=== PATIENT | female | born 1950 | race Two or more races ===

== ENCOUNTER 2017-09-06 13:38 | Outpatient (CLI) | payer OTHER ==
[~2017-09-06 13:38] MED LIST: ALBAFORT325 ( 65 ); VIT C 500 MG-E500 MG
== END 2017-09-06 13:40 | disposition home or self-care (01) ==
LOC: NUCLEAR 13:38
DX: M81.0 Age-related osteoporosis without current pathological fracture (principal)

== ENCOUNTER 2018-01-10 13:37 | Outpatient (CLI) | payer OTHER | END 2018-01-10 13:40 | disposition home or self-care (01) | LOC: SONOGRAMA 13:37 → MAMO-SONO 13:45 | DX: S46.111A Strain of muscle, fascia and tendon of long head of biceps, right arm, initial encounter (principal); S46.311A Strain of muscle, fascia and tendon of triceps, right arm, initial encounter ==

== ENCOUNTER 2018-06-24 08:56 | Outpatient (CLI) | payer OTHER | END 2018-06-24 15:00 | disposition home or self-care (01) | LOC: LAB 08:56 | DX: E03.1 Congenital hypothyroidism without goiter (principal); R78.2 Finding of cocaine in blood; E11.69 Type 2 diabetes mellitus with other specified complication; E11.21 Type 2 diabetes mellitus with diabetic nephropathy; D68.8 Other specified coagulation defects; D64.1 Secondary sideroblastic anemia due to disease ==

== ENCOUNTER 2018-06-24 15:55 | Outpatient (CLI) | payer OTHER | END 2018-06-24 16:03 | disposition home or self-care (01) | LOC: LAB 15:55 | DX: E03.1 Congenital hypothyroidism without goiter (principal); E78.2 Mixed hyperlipidemia; E11.69 Type 2 diabetes mellitus with other specified complication; E11.21 Type 2 diabetes mellitus with diabetic nephropathy; D68.8 Other specified coagulation defects; D64.1 Secondary sideroblastic anemia due to disease ==

== ENCOUNTER 2018-09-26 09:44 | Outpatient (CLI) | payer OTHER | END 2018-09-26 09:52 | disposition home or self-care (01) | LOC: MAMO-SONO 09:44 | DX: D24.1 Benign neoplasm of right breast (principal) ==

== ENCOUNTER 2018-10-10 13:22 | Outpatient (CLI) | payer OTHER | END 2018-10-10 13:32 | disposition home or self-care (01) | LOC: LAB 13:22 | DX: E55.9 Vitamin D deficiency, unspecified (principal); E78.2 Mixed hyperlipidemia; E11.65 Type 2 diabetes mellitus with hyperglycemia; N39.0 Urinary tract infection, site not specified; D68.8 Other specified coagulation defects; E03.8 Other specified hypothyroidism ==

== ENCOUNTER 2018-11-07 07:39 | Outpatient (CLI) | payer OTHER | END 2018-11-07 07:53 | disposition home or self-care (01) | LOC: LAB 07:39 | DX: E11.65 Type 2 diabetes mellitus with hyperglycemia (principal); E11.649 Type 2 diabetes mellitus with hypoglycemia without coma ==

== ENCOUNTER 2019-05-16 09:03 | Outpatient (CLI) | payer OTHER | END 2019-05-16 15:00 | disposition home or self-care (01) | LOC: LAB 09:03 | DX: E11.65 Type 2 diabetes mellitus with hyperglycemia (principal); N39.0 Urinary tract infection, site not specified; D64.89 Other specified anemias; E03.8 Other specified hypothyroidism; E78.2 Mixed hyperlipidemia ==

== ENCOUNTER 2019-08-21 08:26 | Outpatient (CLI) | payer OTHER | END 2019-08-21 08:31 | disposition home or self-care (01) | LOC: LAB 08:26 | DX: E78.2 Mixed hyperlipidemia (principal); E11.65 Type 2 diabetes mellitus with hyperglycemia; D64.89 Other specified anemias; K76.0 Fatty (change of) liver, not elsewhere classified ==

== ENCOUNTER → 2020-02-21 08:53 | Outpatient (CLI) | payer OTHER | END | disposition home or self-care (01) | LOC: LAB 08:53 | PROVIDERS: ATTEND Specialist | DX: D46.0 Refractory anemia without ring sideroblasts, so stated (principal); D46.4 Refractory anemia, unspecified ==

== ENCOUNTER → 2020-02-21 | Outpatient (CLI) | payer OTHER | END | disposition home or self-care (01) | LOC: SONOGRAMA 08:46 | PROVIDERS: ATTEND Specialist | DX: K75.81 Nonalcoholic steatohepatitis (NASH) (principal) ==

== ENCOUNTER → 2020-05-27 08:44 | Outpatient (CLI) | payer OTHER | END | disposition home or self-care (01) | LOC: LAB 08:44 | PROVIDERS: ATTEND Specialist | DX: D64.89 Other specified anemias (principal); E11.21 Type 2 diabetes mellitus with diabetic nephropathy; N39.0 Urinary tract infection, site not specified; E55.9 Vitamin D deficiency, unspecified; E11.65 Type 2 diabetes mellitus with hyperglycemia; E03.8 Other specified hypothyroidism ==

== ENCOUNTER 2020-09-25 15:28 | Outpatient (CLI) | payer OTHER | END 2020-09-25 15:34 | disposition home or self-care (01) | LOC: RAD 15:28 | PROVIDERS: ATTEND Specialist | DX: J45.998 Other asthma (principal) ==

== ENCOUNTER → 2020-10-14 | Outpatient (CLI) | payer OTHER | END | disposition home or self-care (01) | LOC: LAB 08:53 | PROVIDERS: ATTEND Specialist | DX: E03.9 Hypothyroidism, unspecified (principal); D64.9 Anemia, unspecified; E78.2 Mixed hyperlipidemia; D68.8 Other specified coagulation defects ==

== ENCOUNTER 2021-01-30 08:08 | Outpatient (CLI) | payer OTHER | END 2021-01-30 08:12 | disposition home or self-care (01) | LOC: MAMO-SONO 08:08 | PROVIDERS: ATTEND Specialist | DX: R92.1 Mammographic calcification found on diagnostic imaging of breast (principal); N64.59 Other signs and symptoms in breast; Z12.31 Encounter for screening mammogram for malignant neoplasm of breast; Z87.898 Personal history of other specified conditions ==

== ENCOUNTER → 2021-01-30 09:31 | Outpatient (CLI) | payer OTHER | END | disposition home or self-care (01) | LOC: LAB 09:31 | PROVIDERS: ATTEND Specialist | DX: D68.8 Other specified coagulation defects (principal); E78.2 Mixed hyperlipidemia; D64.89 Other specified anemias; Z12.11 Encounter for screening for malignant neoplasm of colon ==

== ENCOUNTER 2021-07-14 08:23 | Outpatient (CLI) | payer OTHER | END 2021-07-14 08:24 | disposition home or self-care (01) | LOC: LAB 08:23 | PROVIDERS: ATTEND Specialist | DX: E11.65 Type 2 diabetes mellitus with hyperglycemia (principal); D64.89 Other specified anemias; D68.8 Other specified coagulation defects; E03.8 Other specified hypothyroidism ==

== ENCOUNTER 2021-10-20 12:54 | Outpatient (CLI) | payer OTHER | END 2021-10-20 12:55 | disposition home or self-care (01) | LOC: NUCLEAR 12:54 | PROVIDERS: ATTEND Specialist | DX: M81.0 Age-related osteoporosis without current pathological fracture (principal) ==

== ENCOUNTER 2022-01-14 08:40 | Outpatient (CLI) | payer OTHER | END 2022-01-14 12:22 | disposition home or self-care (01) | LOC: LAB 08:40 | PROVIDERS: ATTEND Specialist | DX: E03.9 Hypothyroidism, unspecified (principal); E11.21 Type 2 diabetes mellitus with diabetic nephropathy; N39.9 Disorder of urinary system, unspecified; E78.2 Mixed hyperlipidemia; E11.65 Type 2 diabetes mellitus with hyperglycemia; Z12.11 Encounter for screening for malignant neoplasm of colon; D64.9 Anemia, unspecified; J45.998 Other asthma; K75.81 Nonalcoholic steatohepatitis (NASH); M77.9 Enthesopathy, unspecified; M76.892 Other specified enthesopathies of left lower limb, excluding foot; M76.891 Other specified enthesopathies of right lower limb, excluding foot ==

== ENCOUNTER 2022-04-28 08:41 | Outpatient (CLI) | payer OTHER | END 2022-04-28 08:42 | disposition home or self-care (01) | LOC: LAB 08:41 | PROVIDERS: ATTEND Specialist | DX: E03.8 Other specified hypothyroidism (principal); E11.21 Type 2 diabetes mellitus with diabetic nephropathy; R19.5 Other fecal abnormalities; R07.89 Other chest pain; N39.9 Disorder of urinary system, unspecified; M00.80 Arthritis due to other bacteria, unspecified joint; E11.69 Type 2 diabetes mellitus with other specified complication; D64.89 Other specified anemias ==

== ENCOUNTER 2022-06-17 08:57 | Outpatient (CLI) | payer OTHER | END 2022-06-17 09:02 | disposition home or self-care (01) | LOC: RAD 08:57 | PROVIDERS: ATTEND Specialist | DX: M17.5 Other unilateral secondary osteoarthritis of knee (principal); M17.10 Unilateral primary osteoarthritis, unspecified knee ==

== ENCOUNTER 2022-07-23 08:26 | Outpatient (CLI) | payer OTHER | END 2022-07-23 08:35 | disposition home or self-care (01) | LOC: LAB 08:26 | PROVIDERS: ATTEND Specialist | DX: R19.5 Other fecal abnormalities (principal); E11.69 Type 2 diabetes mellitus with other specified complication; E03.8 Other specified hypothyroidism; E11.21 Type 2 diabetes mellitus with diabetic nephropathy; N39.9 Disorder of urinary system, unspecified; M00.80 Arthritis due to other bacteria, unspecified joint; D64.89 Other specified anemias; Z13.220 Encounter for screening for lipoid disorders ==

== ENCOUNTER 2022-09-17 08:48 | Outpatient (CLI) | payer OTHER | END 2022-09-17 09:14 | disposition home or self-care (01) | LOC: LAB 08:48 | DX: E11.42 Type 2 diabetes mellitus with diabetic polyneuropathy (principal); E03.9 Hypothyroidism, unspecified; D51.8 Other vitamin B12 deficiency anemias; G60.3 Idiopathic progressive neuropathy; M54.2 Cervicalgia; M15.8 Other polyosteoarthritis ==

== ENCOUNTER 2022-10-20 10:12 | Outpatient (CLI) | payer OTHER | END 2022-10-20 10:13 | disposition home or self-care (01) | LOC: LAB 10:12 | PROVIDERS: ATTEND Specialist | DX: E03.8 Other specified hypothyroidism (principal); R19.5 Other fecal abnormalities; M00.80 Arthritis due to other bacteria, unspecified joint; E11.69 Type 2 diabetes mellitus with other specified complication; E11.21 Type 2 diabetes mellitus with diabetic nephropathy; D64.89 Other specified anemias; N39.9 Disorder of urinary system, unspecified ==

== ENCOUNTER → 2022-10-20 | Outpatient (CLI) | payer OTHER | END | disposition home or self-care (01) | LOC: MAMO-SONO 08:17 | PROVIDERS: ATTEND Specialist | DX: Z12.39 Encounter for other screening for malignant neoplasm of breast (principal); N60.39 Fibrosclerosis of unspecified breast ==

== ENCOUNTER 2023-01-18 08:32 | Outpatient (CLI) | payer OTHER | END 2023-01-18 08:35 | disposition home or self-care (01) | LOC: LAB 08:32 | PROVIDERS: ATTEND Specialist | DX: J45.991 Cough variant asthma (principal); M00.80 Arthritis due to other bacteria, unspecified joint; E11.69 Type 2 diabetes mellitus with other specified complication; D64.89 Other specified anemias; N39.9 Disorder of urinary system, unspecified; R19.5 Other fecal abnormalities; Z13.220 Encounter for screening for lipoid disorders; M06.9 Rheumatoid arthritis, unspecified; M32.19 Other organ or system involvement in systemic lupus erythematosus; D68.61 Antiphospholipid syndrome; M35.00 Sjogren syndrome, unspecified ==

== ENCOUNTER 2023-04-19 10:10 | Outpatient (CLI) | payer OTHER ==
[2023-04-19 11:25] LABS: HEMATOCRIT 42.5 % (36.0-45.00); HEMOGLOBIN 13.6 g/dL (12.0-15.00); MEAN CELL VOLUME 79.4 fL (80.00-100.00); MEAN CORPUSCULAR HEMOGLOBIN 25.3 pg (27.00-32.0); MEAN CORPUSCULAR HGB CONC 31.9 g/dl (32.0-36.0); PLATELET COUNT 387 K/uL (150-450); RED BLOOD COUNT 5.35 M/uL (4.00-6.00); RED CELL DISTRIBUTION WIDTH 14.1 % (11.5-14.5)
[2023-04-19 11:31] LABS: PH,URINE 5.5 (5.0-8.0); URINE APPEARANCE Clear; URINE BILIRRUBIN Negative (NEGATIVE); URINE BLOOD Negative; URINE COLOR Yellow; URINE GLUCOSE Negative (NEGATIVE); URINE LEUKOCYTE Negative; URINE NITRATE Negative; URINE PROTEIN Negative (NEGATIVE); URINE UROBILINOGEN 0.2 E.U./dl
[2023-04-19 11:36] LABS: URINE BACTERIA 46.6 uL (0.0-1933); URINE EPITHELIAL CELLS 6.3 uL (0.0-38.8); URINE RBC 12.9 uL (0.0-20.8)
[2023-04-19 11:40] LABS: URINE WBC 1.2 uL (0.0-23.2)
[2023-04-19 13:20] LABS: ALBUMIN 3.4 gm/dL (3.4-5.0); ALKALINE PHOSPHATASE 104 U/L (50-136); ALT/SGPT 31 U/L (12-78); ANION GAP 7 (10.0-20.0); AST/SGOT 13 U/L (15-37); BILIRUBIN TOTAL 0.44 mg/dL (0.3-1.2); BLOOD UREA NITROGEN 13 mg/dL (7-18); BUN CREA RATIO 27 (7.0-25.0); CALCIUM 9.1 mg/dL (8.5-10.1); CARBON DIOXIDE 31 mEq/L (21-32); CHLORIDE 104 mmol/L (98-107); CREATININE SERUM 0.49 mg/dL (0.55-1.02); FREE TRIODOTIRONINE 2.21 pg/ml (2.18-3.98); GFR 124.85; GLOBULINA 3.4 G/DL (2.4-3.5); GLUCOSE FASTING 93 mg/dL (65-100); OSMOLALITY SERUM 275 MOSM/KG (275-295); POTASSIUM 4.07 mEq/L (3.5-5.1); SODIUM 138 mmol/L (136-145); T4 FREE 1.01 NG/ML (0.76-1.46); TOTAL PROTEIN 6.8 gm/dL (6.4-8.2)
[2023-04-19 13:25] LABS: C-REACTIVE PROTEIN < 0.29 MG/DL (0.00-0.29)
== END 2023-04-19 10:18 | disposition home or self-care (01) ==
LOC: LAB 10:10
PROVIDERS: ATTEND Specialist
DX: E03.8 Other specified hypothyroidism (principal); E11.69 Type 2 diabetes mellitus with other specified complication; M00.80 Arthritis due to other bacteria, unspecified joint; E11.21 Type 2 diabetes mellitus with diabetic nephropathy; N39.9 Disorder of urinary system, unspecified; D64.89 Other specified anemias

== ENCOUNTER 2023-06-09 11:09 | Outpatient (CLI) | payer OTHER | END 2023-06-09 11:15 | disposition home or self-care (01) | LOC: SONOGRAMA 11:09 | PROVIDERS: ATTEND Physical Medicine & Rehabilitation | DX: M25.512 Pain in left shoulder (principal) ==

== ENCOUNTER → 2023-07-27 09:14 | Outpatient (CLI) | payer OTHER ==
[2023-07-27 09:48] LABS: HEMATOCRIT 40.3 % (36.0-45.00); HEMOGLOBIN 13.5 g/dL (12.0-15.00); MEAN CELL VOLUME 76.8 fL (80.00-100.00); MEAN CORPUSCULAR HEMOGLOBIN 25.7 pg (27.00-32.0); MEAN CORPUSCULAR HGB CONC 33.5 g/dl (32.0-36.0); PLATELET COUNT 390 K/uL (150-450); RED BLOOD COUNT 5.25 M/uL (4.00-6.00); RED CELL DISTRIBUTION WIDTH 14.3 % (11.5-14.5)
[2023-07-27 11:14] LABS: % SATURACION 29.7 % (15-50); ALBUMIN 3.5 gm/dL (3.4-5.0); BILIRUBIN TOTAL 0.35 mg/dL (0.3-1.2); CALCIUM 9.8 mg/dL (8.5-10.1); CREATININE SERUM 0.44 mg/dL (0.55-1.02); FERRITIN 241.7 NG/ML (8-252); GFR 140.96; GLOBULINA 3.4 G/DL (2.4-3.5); POTASSIUM 4.2 mEq/L (3.5-5.1); TOTAL PROTEIN 6.9 gm/dL (6.4-8.2); TSH 1.85 uIU/mL (0.358-3.74)
== END | disposition home or self-care (01) ==
LOC: LAB 09:14
PROVIDERS: ATTEND Specialist
DX: E03.9 Hypothyroidism, unspecified (principal); D64.9 Anemia, unspecified; Z12.11 Encounter for screening for malignant neoplasm of colon; E11.65 Type 2 diabetes mellitus with hyperglycemia

== ENCOUNTER → 2024-02-14 08:37 | Outpatient (CLI) | payer OTHER ==
[~2024-02-14 08:37] MED LIST changes: +LIPITOR20 MG PO
[2024-02-14 09:34] LABS: HEMATOCRIT 40.5 % (36.0-45.00); HEMOGLOBIN 13.5 g/dL (12.0-15.00); MEAN CORPUSCULAR HEMOGLOBIN 26.1 pg (27.00-32.0); MEAN CORPUSCULAR HGB CONC 33.4 g/dl (32.0-36.0); PLATELET COUNT 356 K/uL (150-450); RED BLOOD COUNT 5.19 M/uL (4.00-6.00); RED CELL DISTRIBUTION WIDTH 13.8 % (11.5-14.5)
[2024-02-14 10:23] LABS: FERRITIN 197.3 NG/ML (8-252)
[2024-02-14 12:13] LABS: PLATELET ESTIMATE NORMAL (NORMAL)
[2024-02-14 13:04] LABS: FOLIC ACID > 20.00 ng/ml (4.78-20)
[2024-02-15 07:09] LABS: TRANSFERIN 231 mg/dL (192-364)
[2024-02-16 19:08] LABS: SICKLE CELL Negative (Negative)
== END | disposition home or self-care (01) ==
LOC: LAB 08:37
PROVIDERS: ATTEND Specialist
DX: D64.9 Anemia, unspecified (principal); D51.0 Vitamin B12 deficiency anemia due to intrinsic factor deficiency

== ENCOUNTER → 2024-06-19 08:27 | Outpatient (CLI) | payer OTHER ==
[2024-06-19 09:04] LABS: HEMATOCRIT 40.9 % (36.0-45.00); HEMOGLOBIN 13.8 g/dL (12.0-15.00); MEAN CELL VOLUME 78.2 fL (80.00-100.00); MEAN CORPUSCULAR HEMOGLOBIN 26.3 pg (27.00-32.0); MEAN CORPUSCULAR HGB CONC 33.7 g/dl (32.0-36.0); PLATELET COUNT 386 K/uL (150-450); RED BLOOD COUNT 5.22 M/uL (4.00-6.00); RED CELL DISTRIBUTION WIDTH 14.3 % (11.5-14.5)
[2024-06-19 10:01] LABS: CALCIUM 9.4 mg/dL (8.5-10.1); CHOL HDL RATIO 2.2 (0-5.0); CREATININE SERUM 0.54 mg/dL (0.55-1.02); GFR 111.29; POTASSIUM 4.19 mEq/L (3.5-5.1)
[2024-06-19 11:53] LABS: PLATELET ESTIMATE NORMAL (NORMAL)
== END | disposition home or self-care (01) ==
LOC: LAB 08:27
PROVIDERS: ATTEND Specialist
DX: E11.21 Type 2 diabetes mellitus with diabetic nephropathy (principal); E78.2 Mixed hyperlipidemia; D64.9 Anemia, unspecified

== ENCOUNTER 2024-09-18 10:34 | Outpatient (CLI) | payer OTHER ==
[2024-09-18 11:31] LABS: HEMATOCRIT 41.2 % (36.0-45.00); HEMOGLOBIN 13.5 g/dL (12.0-15.00); MEAN CELL VOLUME 79.2 fL (80.00-100.00); MEAN CORPUSCULAR HGB CONC 32.8 g/dl (32.0-36.0); PLATELET COUNT 378 K/uL (150-450); RED CELL DISTRIBUTION WIDTH 13.9 % (11.5-14.5)
[2024-09-18 11:35] LABS: PH,URINE 5.5 (5.0-8.0); URINE APPEARANCE Clear; URINE BILIRRUBIN Negative (NEGATIVE); URINE BLOOD Negative; URINE COLOR Dark Yellow; URINE GLUCOSE Negative (NEGATIVE); URINE KETONE Trace (NEGATIVE); URINE LEUKOCYTE Negative; URINE NITRATE Negative; URINE PROTEIN Negative (NEGATIVE); URINE UROBILINOGEN 0.2 E.U./dl
[2024-09-18 11:39] LABS: URINE BACTERIA 411.1 uL (0.0-1933); URINE CAST 1.03 uL (0.0-1.40); URINE EPITHELIAL CELLS 4.1 uL (0.0-38.8); URINE RBC 6.3 uL (0.0-20.8); URINE WBC 2.6 uL (0.0-23.2)
[2024-09-18 11:49] LABS: CREATININE URINE RANDOM 94.1 MG/DL (30-125)
[2024-09-18 12:21] LABS: ALBUMIN 3.5 gm/dL (3.4-5.0); BILIRUBIN TOTAL 0.41 mg/dL (0.3-1.2); CALCIUM 9.7 mg/dL (8.5-10.1); CHOL HDL RATIO 2.1 (0-5.0); CREATININE SERUM 0.52 mg/dL (0.55-1.02); GFR 115.91; GLOBULINA 3.4 G/DL (2.4-3.5); POTASSIUM 4.14 mEq/L (3.5-5.1); TOTAL PROTEIN 6.9 gm/dL (6.4-8.2)
[2024-09-18 12:22] LABS: FREE TRIODOTIRONINE 2.37 pg/ml (2.18-3.98); T4 FREE 1.04 NG/ML (0.76-1.46); TSH 1.61 uIU/mL (0.358-3.74)
[2024-09-20 08:22] LABS: PLATELET ESTIMATE INCREASED (NORMAL)
== END 2024-09-18 10:42 | disposition home or self-care (01) ==
LOC: LAB 10:34
PROVIDERS: ATTEND Specialist
DX: E03.9 Hypothyroidism, unspecified (principal); E11.21 Type 2 diabetes mellitus with diabetic nephropathy; N39.9 Disorder of urinary system, unspecified; E78.2 Mixed hyperlipidemia; E11.65 Type 2 diabetes mellitus with hyperglycemia; D64.9 Anemia, unspecified; E55.9 Vitamin D deficiency, unspecified; J45.998 Other asthma

== ENCOUNTER → 2024-12-19 08:28 | Outpatient (CLI) | payer OTHER ==
[2024-12-19 09:09] LABS: PH,URINE 5.5 (5.0-8.0); URINE APPEARANCE Clear; URINE BILIRRUBIN Negative (NEGATIVE); URINE BLOOD Negative; URINE COLOR Yellow; URINE GLUCOSE Negative (NEGATIVE); URINE KETONE Negative (NEGATIVE); URINE LEUKOCYTE Negative; URINE NITRATE Negative; URINE PROTEIN Negative (NEGATIVE); URINE UROBILINOGEN 0.2 E.U./dl
[2024-12-19 09:11] LABS: URINE BACTERIA 14.6 uL (0.0-1933); URINE EPITHELIAL CELLS 3.4 uL (0.0-38.8); URINE RBC 3.8 uL (0.0-20.8); URINE WBC 1.8 uL (0.0-23.2)
[2024-12-19 09:22] LABS: URINE CAST 0.88 uL (0.0-1.40)
[2024-12-19 09:30] LABS: BASO % 0.7 % (0.1-1.2); EOS % 1.8 % (0.7-7.0); HEMATOCRIT 40.6 % (34.1-44.9); HEMOGLOBIN 13.5 g/dL (11.2-15.7); LYMPH # 1.52 (1.18-3.74); LYMPH % 26.7 % (19.3-53.1); MEAN CORPUSCULAR HEMOGLOBIN 26.4 pg (25.6-32.2); MONO # 0.57 (0.24-0.82); NEUT # 3.44 (1.56-6.13); NEUT % 60.4 % (34.0-71.1); PLATELET COUNT 356 K/uL (163-369); RED BLOOD COUNT 5.11 M/uL (3.93-5.22); RED CELL DISTRIBUTION WIDTH 13.7 % (11.6-14.4)
[2024-12-19 10:56] LABS: CALCIUM 9.5 mg/dL (8.5-10.1); CREATININE SERUM 0.51 mg/dL (0.55-1.02); FERRITIN 185.5 NG/ML (8-252); GFR 118.54; POTASSIUM 4.09 mEq/L (3.5-5.1)
[2024-12-20 15:12] LABS: hgb a 97.4 % (96.4-98.8); hgb a2 2.6 % (1.8-3.2); hgb f 0 % (0.0-2.0); hgb s 0 % (0.0)
== END | disposition home or self-care (01) ==
LOC: LAB 08:28
PROVIDERS: ATTEND Specialist
DX: N39.9 Disorder of urinary system, unspecified (principal); Z12.11 Encounter for screening for malignant neoplasm of colon; D64.9 Anemia, unspecified; E11.65 Type 2 diabetes mellitus with hyperglycemia; N39.0 Urinary tract infection, site not specified

== ENCOUNTER 2025-04-17 09:00 | Outpatient (CLI) | payer OTHER ==
[2025-04-17 10:01] LABS: BASO % 0.7 % (0.1-1.2); EOS # 0.11 (0.04-0.54); EOS % 1.6 % (0.7-7.0); LYMPH # 1.75 (1.18-3.74); LYMPH % 26.2 % (19.3-53.1); MEAN PLATELET VOLUME 9.20 fl (9.4-12.4); MONO # 0.57 (0.24-0.82); MONO % 8.5 % (4.7-12.5); NEUT # 4.16 (1.56-6.13); NEUT % 62.4 % (34.0-71.1); RED CELL DISTRIBUTION WIDTH 13.7 % (11.6-14.4)
[2025-04-17 10:10] LABS: CREATININE URINE RANDOM 104.0 MG/DL (30-125)
[2025-04-17 10:24] LABS: ob NEGATIVE (NEGATIVE)
[2025-04-17 11:25] LABS: CHOL HDL RATIO 2.2 (0-5.0); FREE TRIODOTIRONINE 2.51 pg/ml (2.18-3.98); HDL 94.0 mg/dl (40-60); LDL 89.0 mg/dl (0-130); T4 FREE 1.0 NG/ML (0.76-1.46); TSH 1.69 uIU/mL (0.358-3.74); VLDL 20.0 (0-39)
== END 2025-04-17 09:07 | disposition home or self-care (01) ==
LOC: LAB 09:00
PROVIDERS: ATTEND Specialist
DX: E03.9 Hypothyroidism, unspecified (principal); E11.21 Type 2 diabetes mellitus with diabetic nephropathy; E78.2 Mixed hyperlipidemia; Z12.11 Encounter for screening for malignant neoplasm of colon; D64.9 Anemia, unspecified

== ENCOUNTER 2025-04-23 07:47 | Outpatient (CLI) | payer OTHER | END 2025-04-23 07:48 | disposition home or self-care (01) | LOC: NUCLEAR 07:47 | PROVIDERS: ATTEND Specialist | DX: G45.9 Transient cerebral ischemic attack, unspecified (principal); R07.89 Other chest pain ==